=== PATIENT | female | born 1970 | race Caucasian/White ===

== ENCOUNTER → 2016-11-19 | Outpatient (CLI) | payer BC ==
[~2016-11-19] MED LIST: ATOR-26 PO; CHOL20007 PO; CIPR1TAB11 PO; CYM/30 PO; DESV50TA12 PO; DOCU-94 PO; FLV400 PO; INSPMPNVLG; LEVO137T3 PO; LEVO1TAB PO; LORA-741 PO; LSN5 PO; MIRT1TAB27 PO; MISCTAB88 PO; OMEG10007 PO; PUMP1CAP PO; QUET1TAB34 PO; ROPI0.5T15 PO; ROPI3TAB PO; SILO8CAP PO; TMF75 PO
[2016-11-19 17:23] LABS: RATIO 10.9 mcg/mg (0-30.0)
== END | disposition home or self-care (01) ==
LOC: C.LAB1850 15:23
PROVIDERS: ATTEND Internal Medicine Endocrinology, Diabetes & Metabolism
DX: E10.9 Type 1 diabetes mellitus without complications (principal)

== ENCOUNTER → 2016-12-07 | Outpatient (CLI) | payer BC | END | disposition home or self-care (01) | LOC: C.LABSPEC 17:26 | PROVIDERS: ATTEND Obstetrics & Gynecology | DX: Z01.419 Encounter for gynecological examination (general) (routine) without abnormal findings (principal); N76.0 Acute vaginitis ==

== ENCOUNTER → 2016-12-24 | Outpatient (CLI) | payer BC ==
[2016-12-24 14:50] LABS: ESTIMATED AVERAGE GLUCOSE 237 mg/dl; HA1C FLAG Normal (Normal)
== END | disposition home or self-care (01) ==
LOC: C.LAB1850 12:31
PROVIDERS: ATTEND Internal Medicine Endocrinology, Diabetes & Metabolism
DX: E78.5 Hyperlipidemia, unspecified (principal); E10.9 Type 1 diabetes mellitus without complications

== ENCOUNTER → 2017-01-14 | Outpatient (CLI) | payer BC ==
[2017-01-14 13:57] LABS: BLOOD UREA NITROGEN 7 mg/dl (7-18); BUN/CREATININE RATIO 8.6 (10-20); CALCIUM 8.8 mg/dl (8.5-10.1); CARBON DIOXIDE 24 mmol/L (21-32); CHLORIDE 102 mmol/L (98-107); CREATININE 0.78 mg/dl (0.60-1.20); GLUCOSE 307 mg/dl (70-99); POTASSIUM 4.2 mmol/L (3.5-5.1); SODIUM 136 mmol/L (136-145)
== END | disposition home or self-care (01) ==
LOC: C.LAB 12:45
PROVIDERS: ATTEND Nurse Practitioner Family
DX: I10 Essential (primary) hypertension (principal)

== ENCOUNTER 2017-05-04 14:00 | Emergency (ER) | payer BC ==
[~2017-05-04] VITALS: Ht 176.5 cm; Wt 84.8 kg
[~2017-05-04 14:00] MED LIST changes: -ATOR-26 PO; -CHOL20007 PO; -DESV50TA12 PO; -DOCU-94 PO; -FLV400 PO; -LEVO137T3 PO; -LSN5 PO; -MIRT1TAB27 PO; -MISCTAB88 PO; -OMEG10007 PO; -ROPI0.5T15 PO
[2017-05-04 14:01] VITALS: Ht 176.5 cm; Wt 84.8 kg
[2017-05-04] MEDS ORDERED: ATOR-26 PO (14:23)
[2017-05-04] MEDS ORDERED: ROPI0.5T15 PO (14:23)
[2017-05-04] MEDS ORDERED: MIRT1TAB27 PO (14:23)
[2017-05-04] MEDS ORDERED: LEVO137T3 PO (14:23)
[2017-05-04] MEDS ORDERED: OMEG10007 PO (14:23)
[2017-05-04] MEDS ORDERED: CHOL20007 PO (14:23)
[2017-05-04] MEDS ORDERED: DOCU-94 PO (14:23)
[2017-05-04] MEDS ORDERED: FLV400 PO (14:23)
[2017-05-04] MEDS ORDERED: DESV50TA12 PO (14:23)
[2017-05-04] MEDS ORDERED: MISCTAB88 PO (14:23)
[2017-05-04] MEDS ORDERED: LSN5 PO (14:23)
[2017-05-04 14:53] LABS: URINE APPEARANCE CLEAR (CLEAR); URINE BILIRUBIN NEG (NEG); URINE COLOR YELLOW; URINE NITRITE NEG (NEG); URINE PH 5.5 (4.5-7.5); URINE SPECIFIC GRAVITY 1.014 (1.000-1.030); UROBILINOGEN NEG (NEG); ZZUR CULT IF INDIC CLEAN CATCH NO
[2017-05-04 15:00] LABS: MANUAL MICROSCOPIC REQUIRED? NO; REVIEW REQ? NO
[2017-05-04 15:25] LABS: BENZODIAZEPINE, URINE NEG (NEG); COCAINE,URINE NEG (NEG); PHENCYCLIDINE, URINE NEG (NEG)
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
[2017-05-04 15:53] LABS: COMPLETE YES; HEMATOCRIT 41.4 % (37-47); IG% 0.2 %; LYMPH % 31.7 %; LYMPH ABS # 1.42 K/uL (1.2-3.4); MEAN CELL VOLUME 87.3 fL (80-100); MEAN CORPUSCULAR HEMOGLOBIN 30.2 pg (25-34); MEAN CORPUSCULAR HGB CONC 34.5 g/dl (32-36); MONO % 5.6 %; NEUT % 62.5 %; PLATELET COUNT 256 K/uL (130-400); RED BLOOD COUNT 4.74 M/uL (4.2-5.4); WHITE BLOOD COUNT 4.48 K/uL (4.8-10.8)
[2017-05-04 16:09] LABS: BUN/CREATININE RATIO 12.7 (10-20); CALCIUM 8.9 mg/dl (8.5-10.1); CREATININE 0.63 mg/dl (0.60-1.20); POTASSIUM 4.1 mmol/L (3.5-5.1)
[2017-05-04 16:15] LABS: ACETAMINOPHEN < 2 ug/ml (10-30)
[2017-05-04 16:20] LABS: ALB/GLOB RATIO 1.1 (0.9-2); THYROID STIMULATING HORMONE 0.056 uIu/ml (0.300-4.500)
[2017-05-04 21:45] VITALS: BP 124/79; PULSE 55; TEMP 36.8; O2SAT 99
== END 2017-05-04 21:46 ==
LOC: C.EDB 14:01 → C.EDA 21:46
DX: R45.851 Suicidal ideations (principal); E10.9 Type 1 diabetes mellitus without complications; E03.9 Hypothyroidism, unspecified; Z87.891 Personal history of nicotine dependence; Z79.4 Long term (current) use of insulin; Z79.899 Other long term (current) drug therapy; Z88.2 Allergy status to sulfonamides; Z88.6 Allergy status to analgesic agent; Z88.8 Allergy status to other drugs, medicaments and biological substances

== ENCOUNTER → 2017-05-13 | Outpatient (CLI) | payer BC ==
[~2017-05-13] MED LIST changes: +ATOR-26 PO; +CHOL20007 PO; -CIPR1TAB11 PO; -CYM/30 PO; +DESV50TA12 PO; +DOCU-94 PO; +FLV400 PO; +LEVO137T3 PO; -LEVO1TAB PO; -LORA-741 PO; +LSN5 PO; +MIRT1TAB27 PO; +MISCTAB88 PO; +OMEG10007 PO; -PUMP1CAP PO; -QUET1TAB34 PO; +ROPI0.5T15 PO; -ROPI3TAB PO; -SILO8CAP PO; -TMF75 PO
[2017-05-13 15:23] LABS: THYROID STIMULATING HORMONE 0.138 uIu/ml (0.300-4.500)
[2017-05-14 08:08] LABS: ESTIMATED AVERAGE GLUCOSE 255 mg/dl; HA1C FLAG Normal (Normal)
== END | disposition home or self-care (01) ==
LOC: C.LAB1850 13:51
PROVIDERS: ATTEND Internal Medicine Endocrinology, Diabetes & Metabolism
DX: E10.9 Type 1 diabetes mellitus without complications (principal); E03.9 Hypothyroidism, unspecified

== ENCOUNTER → 2017-05-14 | Outpatient (CLI) | payer BC | END | disposition home or self-care (01) | LOC: C.LAB 15:47 | PROVIDERS: ATTEND Obstetrics & Gynecology | DX: N91.2 Amenorrhea, unspecified (principal) ==

== ENCOUNTER → 2017-12-02 | Outpatient (CLI) | payer OTHER ==
[2017-12-03 07:06] LABS: HEMOGLOBIN A1C 9.3 % (4.5-5.6)
== END | disposition home or self-care (01) ==
LOC: C.LAB1850 14:11
PROVIDERS: ATTEND Internal Medicine Endocrinology, Diabetes & Metabolism
DX: E03.9 Hypothyroidism, unspecified (principal); E55.9 Vitamin D deficiency, unspecified; E78.5 Hyperlipidemia, unspecified; E10.9 Type 1 diabetes mellitus without complications

== ENCOUNTER → 2018-05-23 | Outpatient (CLI) | payer OTHER ==
[~2018-05-23] MED LIST changes: +LISI-730 PO; -LSN5 PO
[2018-05-23 12:49] LABS: HEMOGLOBIN A1C 7.2 % (4.5-5.6)
== END | disposition home or self-care (01) ==
LOC: C.LAB1850 10:21
PROVIDERS: ATTEND Internal Medicine Endocrinology, Diabetes & Metabolism
DX: E10.65 Type 1 diabetes mellitus with hyperglycemia (principal)

== ENCOUNTER → 2018-06-02 | Outpatient (CLI) | payer OTHER | END | disposition home or self-care (01) | LOC: C.LAB1850 13:32 | PROVIDERS: ATTEND Internal Medicine Endocrinology, Diabetes & Metabolism | DX: E03.9 Hypothyroidism, unspecified (principal) ==

== ENCOUNTER 2023-05-10 06:14 | Observation (INO) ==
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
[~2023-05-10 06:14] MED LIST changes: +ACETAMINOPHEN 500 MG TAB PO SCH; -ATOR-26 PO; -CHOL20007 PO; -DESV50TA12 PO; -DOCU-94 PO; -FLV400 PO; +GABAPENTIN 900 MG DOSE PO SCH; -INSPMPNVLG; -LEVO137T3 PO; -LISI-730 PO; +LR 15ML/HR IV SCH; +LR 60ML/HR IV SCH; -MIRT1TAB27 PO; -MISCTAB88 PO; -OMEG10007 PO; -ROPI0.5T15 PO; +ceFAZolin 2000MG 2,000 MG/15 ML SYR IV SCH
[2023-05-10] MEDS ORDERED: DexMEDEtomidine HCL IV 100 MCG/ML VIAL IV ONE (07:04)
[2023-05-10] MEDS ORDERED: ONDANSETRON INJ 2 MG/ML 2 ML VIAL ONE (07:15)
[2023-05-10] MEDS ORDERED: PROPOFOL IV EMULSION 10 MG/ML 20 ML VIAL IV ONE (07:15)
[2023-05-10] MEDS ORDERED: ROCURONIUM BROMIDE 10 MG/ML 5 ML VIAL IV ONE ×2 (07:15→08:44)
[2023-05-10] MEDS ORDERED: fentaNYL citrate PF 100 MCG/2 ML VIAL ONE (07:15)
[2023-05-10] MEDS ORDERED: DEXAMETHASONE SOD INJ 4 MG/ML VIAL ONE (07:15)
[2023-05-10] MEDS ORDERED: LIDOCAINE 2% 2 ML VIAL/AMP(20MG/ML) INFIL ONE (07:15)
[2023-05-10] MEDS ORDERED: MIDAZOLAM HCL 1 MG/ML 2ML VIAL ONE (07:15)
--- NOTE | 2023-05-10 07:41 | History & Physical Bridge Note ---
Date of Service May 10, 2023 History & Physical Bridge Note I have examined the patient, reviewed the History & Physical and in the interval since the performance of the History & Physical I have noted the following changes of clinical significance: no changes noted
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
[2023-05-10] MEDS ORDERED: ceFAZolin 330 MG/ML 1 GM VIAL ONE (07:46)
[2023-05-10] MEDS ORDERED: KETAMINE 50 MG/5 ML SYRINGE ONE (08:24)
[2023-05-10] MEDS ORDERED: ePHEDrine sulfate 50 MG/ML AMP IV PRN (08:28)
[2023-05-10] MEDS ORDERED: FLUMAZENIL 0.1 MG/1 ML 10 ML VIAL IV PRN (08:28)
[2023-05-10] MEDS ORDERED: LABETALOL HCL IV 5 MG/ML 20ML IV PRN (08:28)
[2023-05-10] MEDS ORDERED: NALOXONE HCL 0.4 MG/1 ML VIAL/CARP IV PRN ×2 (08:28→11:35)
[2023-05-10] MEDS ORDERED: PROMETHAZINE HCL 12.5 MG in SODIUM CHLORIDE 0.9% 50 ML IV PRN ×2 (08:28→11:35)
[2023-05-10] MEDS ORDERED: HYDROmorphone INJ 1 MG/ML SYRINGE IV PRN ×2 (08:28→11:35)
[2023-05-10] MEDS ORDERED: ATROPINE SULFATE 0.1 MG/ML 10ML SYR IV PRN (08:28)
[2023-05-10] MEDS ORDERED: ONDANSETRON INJ 2 MG/ML 2 ML VIAL IV PRN ×2 (08:28→11:35)
[2023-05-10] MEDS ORDERED: FLOSEAL HEMOSTATIC MATRIX 10ML TOP ONE (08:34)
[2023-05-10] MEDS ORDERED: ePHEDrine sulfate 50 MG/ML AMP ONE (08:51)
[2023-05-10] MEDS ORDERED: SUGAMMADEX SODIUM 200 MG/2 ML VIAL IV ONE (09:30)
--- NOTE | 2023-05-10 10:02 | Operative Report ---
Post Operative Report Pre & Post Diagnosis Operation Date: 05/10/23 07:45 Pre-Op Diagnosis: Cervical spinal stenosis with myeloradiculopathy Post-Op Diagnosis: Same I identified the patient and participated in the time-out.: Yes Procedure Operation Date: 05/10/23 07:45 Actual Procedures #1 anterior cervical corpectomy with bilateral foraminotomies C5. #2 anterior cervical discectomy with bilateral foraminotomies C6-C7. #3 anterior cervical arthrodesis C4-C6 and C6-C7. #4 placement 23 mm peek cage C4-C6 and 9 mm cage C6-C7. #5 placement locally harvested morselized autograft combined with I factor and interbody cages. #6 application of K2 M plate and screws from C3-4 to C7. Surgeon Karlos Burns, Res Counselor Eneida France Estimated Blood Loss 50 Findings Consistent with Post-Op Diagnosis Specimens None Indications This is a 53-year-old female who presents above-mentioned diagnosis of failed extensive course of nonoperative care she is here for surgical invention. Description of Procedure Patient was met with identified informed consent obtained. Patient was then taken to the operative suite underwent ablation placed in a supine position on the Tony table with head Armstrong head order. All bony prominences well- padded eyes inspected to ensure no external pressure placed upon the. This point the anterior cervical spine was prepped draped in a sterile fashion. The assistance of fluoroscopy identified the C5-C6 disc base and a transverse incision was placed along the right anterior aspect of the cervical spinal lines region. Blunt dissection with assistance of bipolar cautery to form down to expose the anterior cervical spine from C4-C7. Self-retaining retractors placed. Then performed a complete discectomy of C4-C5 out to the uncovertebral's bilaterally followed by C5-C6. [place] distraction pins were then placed in C4 and C6 to distract across the C5 vertebral body. A complete corpectomy was then performed including removal of all posterior annular fibers longitudinal limit bilateral foraminotomies performed. Endplates burred to subcortical bleeding bone and a 23 mm peek cage with locally harvested morselized autograft and I factor tapped position. Distracting apparatus was removed and I proceeded to C6-C7. Again complete discectomy performed out to the uncovertebral's bilaterally. [place] distractor pins again utilized. Removed all posterior annular fibers longitudinal limit bilateral foraminotomies performed and a 9 mm peek cage filled locally harvested morselized allograft and I factor tapped the position. Distracting apparatus was removed all anterior osteophytes burred to a smooth cortical surface and a K2 M plate and screws applied with the assistance of fluoroscopy. The incision was then copiously irrigated explored to ensure no damage surrounding structure remaining bleeding. 10 round JEFF drain inserted. The incision was then closed with 2 Vicryl in a fashion of 4 Monocryl for final closure. Steri-Strip sterile dressings placed. Patient awakened taken to PACU in stable condition. Please note spinal cord monitoring was utilized at the procedure no changes noted. Lastly Eneida France was present at the entire surgeon while the patient positioning complex portion of the surgery and final skin closure. I attest to the content of the Intraoperative Record and any orders documented therein. Any exceptions are noted below.
[2023-05-10] MEDS: fentaNYL citrate PF 100 MCG/2 ML VIAL IV PRN ×3 (10:16→10:56)
--- NOTE | 2023-05-10 10:51 | Fluoroscopy Report ---
FL cervical 2-3V CLINICAL HISTORY: ACDF C6-C7 / C5 CORPECTOMY COMPARISON STUDY: None FLUOROSCOPY TIME: 13.2 seconds FLUOROSCOPY IMAGES: 3 EXPOSURE DOSE: 4.22 mGy FINDINGS: Anterior plate-screw fusion hardware of the lower cervical spine, exact numbering is diffic ult secondary to positioning. Postoperative dedicated radiographs would be more definitive for the ex act numbering of the hardware. Note that the images were submitted following completion of the surger y. Endotracheal tube is noted. A surgical sponge projects over the anterior operative bed. The visual ized hardware appears intact. Surgical drainage catheter. IMPRESSION: Fluoroscopic assistance as above. ACT 112: Negative or not required by law. Electronically signed by: Abram Toscano M.D. 05/10/2023 10:50 AM
--- NOTE | 2023-05-10 11:10 | Anesthesiology Progress Note ---
Date of Service May 10, 2023 Anesthesia Post Procedure Vital Signs Vital Signs: Temp Pulse Pulse Resp BP Pulse Ox O2 Del Method 05/10/23 11:00 75 12 105/65 96 Room Air 05/10/23 10:50 69 12 104/60 96 Room Air 05/10/23 10:40 65 16 106/61 95 Room Air 05/10/23 10:30 72 14 105/61 100 Oxymask 05/10/23 10:20 75 14 109/67 100 Oxymask 05/10/23 10:10 36.7 C 74 12 119/70 100 Oxymask 05/10/23 06:51 37 C 87 18 132/81 100 Room Air O2 Flow Rate 05/10/23 11:00 05/10/23 10:50 05/10/23 10:40 05/10/23 10:30 6 05/10/23 10:20 6 05/10/23 10:10 6 05/10/23 06:51 Pain Intensity Neck: Pain Intensity: 4 Transfer of Care Handoff Completed per policy Notes Mental Status: alert / awake / arousable Patient Amnestic to Procedure: Yes Nausea / Vomiting: adequately controlled Pain: adequately controlled Airway Patency, RR, SpO2: stable & adequate BP & HR: stable & adequate Hydration State: stable & adequate Anesthetic Complications: no major complications apparent
[2023-05-10] MEDS ORDERED: LORazepam 0.5 MG TAB PO PRN (11:35)
[2023-05-10] MEDS ORDERED: MAGNESIUM HYDROXIDE SUSP 30 ML UDC PO PRN (11:35)
[2023-05-10] MEDS ORDERED: PHARMACY GLYCEMIC MGMT CONSULT PRN (11:35)
[2023-05-10] MEDS ORDERED: METOCLOPRAMIDE HCL INJ 5 MG/ML 2 ML VIAL IV PRN (11:35)
[2023-05-10] MEDS ORDERED: HYDROmorphone INJ 0.5 MG/0.5 ML SYR IV PRN (11:35)
[2023-05-10] MEDS ORDERED: GLUCAGON HCL IM PRN (11:35)
[2023-05-10] MEDS ORDERED: ONDANSETRON 4 MG OD TAB PO PRN (11:35)
[2023-05-10] MEDS ORDERED: traMADol HCL 50 MG TABLET PO PRN (11:35)
[2023-05-10] MEDS ORDERED: FAMOTIDINE 20 MG TAB PO PRN (11:35)
[2023-05-10] MEDS ORDERED: tiZANidine HCL 4 MG TABLET PO PRN (11:35)
[2023-05-10] MEDS ORDERED: ACETAMINOPHEN 500 MG TAB PO PRN (11:35)
[2023-05-10] MEDS ORDERED: DO NOT ADMINISTER FLU VACCINE PRN (11:35)
[2023-05-10] MEDS ORDERED: diphenhydrAMINE Capsule 25 MG CAP PO PRN (11:35)
[2023-05-10] MEDS ORDERED: DO NOT ADMINISTER PNEUMOCOCCAL VACCINE PRN (11:35)
[2023-05-10] MEDS ORDERED: ALUMINUM/MAGNESIUM SUSP 30 ML UDC PO PRN (11:35)
[2023-05-10] MEDS ORDERED: SOD PHOSPHATE/SOD BIPHOSPHATE ENEMA 132 ML BTL PR PRN (11:35)
[2023-05-10] MEDS ORDERED: dexAMETHasone 8 MG in SYRINGE 0 ML IV PRN (11:35)
[2023-05-10] MEDS ORDERED: bisacodyL 10 MG SUPP PR PRN (11:35)
[2023-05-10] MEDS ORDERED: RACEPINEPHRINE 2.25% NEBU SOLN 0.5 ML VIAL INH PRN (11:35)
[2023-05-10] MEDS ORDERED: ACETAMINOPHEN 1,000 MG/100 ML VIAL IV PRN (11:35)
[2023-05-10] MEDS ORDERED: LORazepam 2 MG/1 ML VIAL IV PRN (11:35)
[2023-05-10] MEDS ORDERED: hydrOXYzine HCl 25 MG TAB PO PRN (11:35)
[2023-05-10] MEDS: SODIUM CHLORIDE 0.9% 1000ML 1,000 ML IV SCH ×2 (12:06→20:45)
[2023-05-10] MEDS ORDERED: INSULIN ASPART PER UNIT CHARGE SC SCH (12:15)
[2023-05-10] MEDS ORDERED: INSULIN HUMAN NPH SC SCH (12:30)
[2023-05-10] MEDS ORDERED: LANTUS PER UNIT CHARGE SC SCH (12:30)
[2023-05-10] MEDS: oxyCODONE HCL IR 5 MG TAB (IMMEDIATE RELEASE) PO PRN ×2 (12:49→18:22)
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
[2023-05-10] MEDS ORDERED: CARBOHYDRATES FOR HYPOGLYCEMIA PO PRN (15:00)
[2023-05-10] MEDS ORDERED: GLUCOSE 40% GEL 15 GM TUBE PO PRN (15:00)
[2023-05-10] MEDS ORDERED: INSULIN ASPART 100 UNITS/ML VIAL SC PRN (15:00)
[2023-05-10] MEDS ORDERED: DEXTROSE 50% 50 ML SYRINGE IV PRN (15:00)
[2023-05-10] MEDS ORDERED: GLUCAGON FOR INJ 1 MG VIAL IM PRN (15:00)
[2023-05-10] MEDS ORDERED: GLUCOSE 10 TAB/TUBE PO PRN (15:00)
[2023-05-10] MEDS: INSULIN, Rapid-Acting PUMP SCH ×2 (16:47→20:42)
[2023-05-10] MEDS: ceFAZolin 2000MG 2,000 MG/15 ML SYR IV SCH (17:07)
[2023-05-10] MEDS ORDERED: PRAMIPEXOLE DIHYDROCHLO 0.25 MG TAB PO SCH (19:00)
[2023-05-10] MEDS: SULINDAC 150 MG TAB PO SCH (20:37)
[2023-05-10] MEDS ORDERED: MAGNESIUM OXIDE 400 MG TAB PO SCH (21:00)
[2023-05-10] MEDS ORDERED: FERROUS SULFATE 325 MG TAB PO SCH (21:00)
[2023-05-10] MEDS ORDERED: DOCUSATE SODIUM/SENNA 50/8.6MG TAB PO SCH (21:00)
[2023-05-10] MEDS ORDERED: ATORVASTATIN 40 MG TAB PO SCH (21:00)
[2023-05-10] MEDS ORDERED: AMITRIPTYLINE HCL 25 MG TAB PO SCH (21:00)
[2023-05-11] MEDS: ceFAZolin 2000MG 2,000 MG/15 ML SYR IV SCH (00:26)
[2023-05-11] MEDS: oxyCODONE HCL IR 5 MG TAB (IMMEDIATE RELEASE) PO PRN ×2 (00:46→09:39)
[2023-05-11] MEDS ORDERED: ACETAMINOPHEN 500 MG TAB PO SCH (06:00)
[2023-05-11] MEDS ORDERED: ceFAZolin 2000MG 2,000 MG/15 ML SYR IV SCH (06:00)
[2023-05-11] MEDS ORDERED: GABAPENTIN 900 MG DOSE PO SCH (06:00)
[2023-05-11] MEDS ORDERED: LR 60ML/HR IV SCH (06:00)
[2023-05-11] MEDS ORDERED: POLYETHYLENE (MIRALAX) 17 GM PACK PO SCH (06:00)
[2023-05-11] MEDS ORDERED: LEVOTHYROXINE SODIUM 150 MCG TABLET PO SCH (06:30)
[2023-05-11 06:46] LABS: Hematocrit (blood only) 31.4 % (37.0-47.0); Hemoglobin 10.9 g/dl (12.0-16.0); Mean Corpuscular Hgb Conc 34.7 g/dL (32.0-36.0); Mean Corpuscular Volume 92.1 fL (80.0-100.0); Mean Platelet Volume 9.8 fL (9.4-12.4); Platelet Count 170 K/uL (130-400); RDW Coefficient of Variation 12.7 % (11.5-14.5); RDW Standard Deviation 42.6 fL (36.4-46.3); Red Blood Count 3.41 M/uL (4.20-5.40); White Blood Count 4.42 K/ul (4.8-10.8)
[2023-05-11 07:06] LABS: BUN Creatinine Ratio 12.3 (10-20); Calcium 8.3 mg/dl (8.6-10.3); Est GFR (African American) 117.5 ml/min; Est GFR (Non-African American) 101.4 ml/min; Magnesium 1.8 mg/dl (1.7-2.4); Potassium 3.6 mmol/L (3.5-5.1)
[2023-05-11] MEDS: INSULIN, Rapid-Acting PUMP SCH (07:50)
[2023-05-11] MEDS: SULINDAC 150 MG TAB PO SCH (08:13)
[2023-05-11] MEDS ORDERED: VILAZODONE HCL 40 MG PO SCH (09:00)
[2023-05-11] MEDS ORDERED: dexAMETHasone 6 MG in SYRINGE 0 ML IV SCH (09:00)
[2023-05-11] MEDS ORDERED: buPROPion SR 150 MG TABCR PO SCH (09:00)
--- NOTE | 2023-05-11 09:51 | Discharge Summary ---
Date of Service May 11, 2023 Admission HPI Per Admitting Provider This is a 53-year-old female who presents with chronic persistent neck and arm pain and failing since course of nonoperative care is here for surgical intervention. Principal Diagnosis Cervical spinal stenosis with myeloradiculopathy Discharge Data Allergies Allergy/AdvReac Type Severity Reaction Status Date / Time erythromycin base Allergy Unknown n/v/d Verified 05/10/23 06:41 sulfamethoxazole AdvReac Severe Anxiety Verified 05/10/23 06:41 [From Bactrim] trimethoprim [From Bactrim] AdvReac Severe Anxiety Verified 05/10/23 06:41 Sulfa (Sulfonamide AdvReac Anxiety Verified 05/10/23 06:41 Antibiotics) Consultations 05/10/23 11:35 Consult Hospitalist Routine Procedures Performed Operation Date: 05/10/23 07:45 Actual Procedures p C6-C7 Anterior Cervical Discectomy and Fusion, C5 Corpectomy, Spinal Cord Monitoring(Not Applicable) - Karlos Burns DO Ordered Studies 05/10/23 07:45 FL cervical 2-3V Routine Hospital Course (1) Myelopathy concurrent with and due to spinal stenosis of cervical region: Patient went anterior cervical decompression and fusion tolerated this well was taken to orthopedic for postoperative. Postop day 1 she was swallowing well. No hoarseness. JEFF drain decreasing probably. Arm symptoms improved. Excellent strength testing. Subsequent discharge home. Discharge orders instructions found in chart for further review. Total Time Total Time Spent Total Time Spent (In Minutes): 20 minutes Discharge Plan Discharge Items Patient Disposition: Home - Self-Care Reason For Visit: POSTOP Discharge Diagnosis: Cervical spinal stenosis with myeloradiculopathy Activity: As commented below Non-emergency contact: Primary Care Provider Call non-emergency contact if: you have any medication questions Follow-up/Referrals: Faraz Newell III, CRNP [Primary Care Provider] - Diet: Regular Addtl Attending Provider Instructions: ACTIVITY RECOMMENDATIONS: SELF CARE INSTRUCTIONS AFTER CERVICAL FUSIONS 1. No smoking. Smoking drastically decreases the chance of a solid fusion. 2. No bending, lifting more than 5 pounds, or twisting (roll like a log when turning in bed). 3. You may shower 3 days after surgery. Thoroughly dry wound. Do not soak in the tub. 4. Cervical collar: Must be worn at all times including sleeping. You may remove the brace only to bath, eat and if you are sitting in a recliner. 5. Please walk as much as you can for exercise. Gradually increase the distance that you walk as your endurance increases. SPECIAL CARE INSTRUCTIONS: VERY IMPORTANT TO READ AND REVIEW A. Do not take any anti-inflammatory medications (i.e. Indocin, Advil, Aspirin, Naprosyn, Aleve, Motrin, etc.) as these may inhibit the chance of a solid fusion. Tylenol is okay to take. B. Your surgical incision has been closed with a cosmetic suture under the skin that will dissolve in about 6 weeks. In 14 days, you can use a pair of clean scissors and cut the suture that is left outside of the skin at the ends of your incision. C. Complications are uncommon, but please contact us if you have any signs or symptoms of: 1. wound infection (fever higher than 102.5 degrees F, redness, separation of wound, drainage, or increasing pain from the incision) 2. blood clots in legs (pain, swelling, redness and warmth in legs) 3. urinary tract infection (fever higher than 102.5 degrees, burning upon urination or increased frequency of urination) 4. nerve problems (inability to walk on your toes or heels, numbness, loss of bowel or bladder control) 5. any other symptoms that concern you. D. Please call the office at if you have any concerns or questions about your operation or recovery. MANAGING PAIN AFTER SPINAL SURGERY 1. Narcotic medication is intended for short-term use and will be provided for surgical pain. Surgical pain usually lasts for a period of 4-6 weeks. Narcotic medication includes Percocet, Vicodin, Darvocet, Tylenol #3 or Lortab. 2. Longer-term pain is more appropriately treated with non-narcotic medication such as Tylenol ES. 3. Muscle spasm is not appropriately treated with narcotics. Muscle relaxers such as Soma, Flexeril or Skelaxin can be used along with Tylenol ES. 4. Remember that we all live with some "aches and pains". This is not unusual or uncommon after an injury or as we get older. 5. We will provide appropriate medication within the normal guidelines of their prescribed use. We will also be very cautious and aware of potential abuse and extended duration of patients' medication needs. 6. Please allow 2-3 days to process refills. Prescriptions will not be mailed but must be picked up at the office. FOLLOW UP VISIT: Keep your scheduled follow-up appointment. Any questions, please call the office at . Pending Studies at Discharge: No Stand-Alone Forms: [facility], Smoking Cessation Medications and DC Order Prescriptions: New tramadol 50 mg tablet 50 mg PO Q6H PRN (Reason: pain, moderate) Qty: 20 0RF oxycodone 5 mg tablet 5 mg PO Q6H PRN (Reason: pain) Qty: 20 0RF Continued (DME) VariSoft Infusion Set 32" Infusion Set See Rx Instructions .Route Qty: 50 1RF Rx Instructions: Change Infusion set every 2 days insulin aspart U-100 [Novolog U-100 Insulin aspart] 100 unit/mL solution See Rx Instructions .ROUTE .COMPLEX Qty: 50 1RF Rx Instructions: Infuse 50 units daily via insulin pump ; sulindac 150 mg tablet 150 mg PO BID Qty: 60 1RF atorvastatin 80 mg tablet 80 mg PO QPM Qty: 90 1RF insulin glargine 100 unit/mL (3 mL) insulin pen 0 unit subcut .in case of pump fail PRN (Reason: ud) Qty: 3 Rx Instructions: insulin pump glucagon HCl 1 mg/mL recon soln 1 mg IM ONCE PRN (Reason: ud) Qty: 2 vilazodone 40 mg tablet 40 mg PO QAM Rx Instructions: must administer with a meal/food pramipexole [Mirapex] 0.25 mg tablet 0.25 mg PO QPM Rx Instructions: administer 2 - 3 hours before bedtime bupropion HCl 200 mg tablet sustained-release 12 hr 300 mg PO QAM acetaminophen [Tylenol Extra Strength] 500 mg tablet 500 mg PO .qod PRN (Reason: Pain) cyanocobalamin (vitamin B-12) [Vitamin B-12] 1,000 mcg tablet 1,000 mcg PO QAM (DME) Contour Next Test Strips Strip See Rx Instructions .ROUTE .MEDSUPPLY Dose Instruction: As directed Rx Instructions: Test blood sugar once daily PRN (DME) Dexcom G6 Sensor Device See Rx Instructions .Route Rx Instructions: As directed (DME) Dexcom G6 Transmitter Device See Rx Instructions .Route Rx Instructions: As directed magnesium 250 mg tablet 500 mg PO QPM (DME) t:slim X2 Cartridge See Rx Instructions .ROUTE .MEDSUPPLY Qty: 10 Rx Instructions: As directed estradiol 0.01 % (0.1 mg/gram) cream 1 g vaginal .COMPLEX Qty: 42.5 2RF Rx Instructions: 1 g vaginally 2x/wk; cholecalciferol (vitamin D3) 50 mcg (2,000 unit) capsule 100 mcg PO QAM vitamin E (dl, acetate) 180 mg (400 unit) capsule 180 mg PO QAM ferrous sulfate 325 mg (65 mg iron) tablet 325 mg PO HS amitriptyline 25 mg PO .QHS tizanidine 4 mg Capsule 4 mg PO TID PRN (Reason: Muscle Spasm) levothyroxine 150 mcg tablet 150 mcg PO QAM Discharge Orders: Discharge Order (Routine); Ordered 05/11/23 Ordered By: Karlos Burns Admission Data Admit Date/Time: 05/10/23 10:06 Attending Provider: Karlos Burns Admit Provider: Karlos Burns Primary Care Provider: Faraz Newell III Other Providers: Clement Yusuf
--- NOTE | 2023-05-12 23:06 | Electrocardiogram Report ---
Test Reason : Blood Pressure : / mmHG Vent. Rate : 070 BPM Atrial Rate : 070 BPM P-R Int : 170 ms QRS Dur : 092 ms QT Int : 424 ms P-R-T Axes : 062 004 044 degrees QTc Int : 457 ms Normal sinus rhythm Normal ECG When compared with ECG of 28-APR-2023 12:26, No significant change was found Confirmed by Pawan Long ([id number]) on 05/12/2023 11:06:25 PM Referred By: Karlos Burns Confirmed By:Pawan Long
== END 2023-05-11 11:24 | disposition home or self-care (01) ==
LOC: 3E 06:14 → ASU 06:14